=== PATIENT | male | born 1955 | race Caucasian/White ===

== ENCOUNTER 2018-10-13 07:04 | Day surgery (SDC) | payer BC ==
[~2018-10-13] VITALS: Ht 188 cm; Wt 123.4 kg
[~2018-10-13 07:04] MED LIST: AMIT50TA; ATEN50TA9 PO; FLUO60TA6 PO; TYLE500T78 PO
[2018-10-13] MEDS ORDERED: NS 1,000 ML IV ONE (07:30)
[2018-10-13] MEDS ORDERED: PROPOFOL 500 MG/50 ML VIAL As Ordered ONE (08:56)
[2018-10-13] MEDS ORDERED: LIDOCAINE 2% INJ 100 MG/5 ML SDV (FOR ANES.) As Ordered ONE (08:56)
--- NOTE | 2018-10-13 08:59 | ROOR ---
Patient Name: Charles Mckeon Procedure Date: 10/13/2018 8:33 AM Date of : 1955 Age: 62 Room: [facility] Gender: Male Note Status: Finalized Procedure: Colonoscopy Indications: High risk colon cancer surveillance: Personal history of colonic polyps, Last colonoscopy: May 2015 Providers: Sebastian BALDERRAMA MD Referring MD: LANETTE BENITO MD Requesting Provider: Medicines: Monitored Anesthesia Care Complications: No immediate complications. Procedure: Pre-Anesthesia Assessment: - The heart rate, respiratory rate, oxygen saturations, blood pressure, adequacy of pulmonary ventilation, and response to care were monitored throughout the procedure. The Colonoscope was introduced through the anus and advanced to the cecum, identified by appendiceal orifice and ileocecal valve. The colonoscopy was performed without difficulty. The patient tolerated the procedure well. The quality of the bowel preparation was good. Findings: The perianal and digital rectal examinations were normal. Two sessile polyps were found in the sigmoid colon and ascending colon. The polyps were diminutive in size. These polyps were removed with a jumbo cold forceps. Resection and retrieval were complete. A 5 mm polyp was found in the mid sigmoid colon. The polyp was semi-sessile. The polyp was removed with a cold snare. Resection and retrieval were complete. To prevent bleeding after the polypectomy, one hemostatic clip was successfully placed. Small Internal Hemorrhoids. Impression: - Two diminutive polyps in the sigmoid colon and in the ascending colon, removed with a jumbo cold forceps. Resected and retrieved. - One 5 mm polyp in the mid sigmoid colon, removed with a cold snare. Resected and retrieved. Clip was placed. - Small Internal Hemorrhoids. Recommendation: - Repeat colonoscopy in 3 years for surveillance. Sebastian Balderrama MD Sebastian BALDERRAMA MD 10/13/2018 8:59:07 AM This report has been signed electronically. Number of Addenda: 0 Note Initiated On: 10/13/2018 8:33 AM Estimated Blood Loss: Estimated blood loss: none.
[2018-10-13 09:28] VITALS: BP 134/79
== END 2018-10-13 09:30 | disposition home or self-care (01) ==
LOC: M OPP 07:04
PROVIDERS: ATTEND Internal Medicine Gastroenterology
DX: Z12.11 Encounter for screening for malignant neoplasm of colon (principal); Z86.010 Personal history of colon polyps; K64.8 Other hemorrhoids; D12.2 Benign neoplasm of ascending colon; K63.5 Polyp of colon; D12.8 Benign neoplasm of rectum; G47.30 Sleep apnea, unspecified; K21.9 Gastro-esophageal reflux disease without esophagitis; I10 Essential (primary) hypertension; G62.9 Polyneuropathy, unspecified; M47.892 Other spondylosis, cervical region; Z79.899 Other long term (current) drug therapy; Z88.0 Allergy status to penicillin

== ENCOUNTER → 2018-11-18 | Outpatient (REF) | payer BC ==
[2018-11-18 15:51] LABS: BASO % 0.2 % (0.0-1.0); EOS # 0.1 10^3/uL (0.0-0.50); EOS % 1.6 % (0.0-3.0); HEMATOCRIT 44.7 % (42.0-52.0); HEMOGLOBIN 14.8 g/dl (13.5-17.5); LYMPH % 24.7 % (24.0-44.0); MEAN CORPUSCULAR HEMOGLOBIN 28.2 pg (27.0-33.0); MEAN CORPUSCULAR HGB CONC 33.1 g/dl (32.0-36.5); MEAN CORPUSCULAR VOLUME 85.1 fl (80.0-96.0); MONO # 0.8 10^3/uL (0.0-0.8); MONO % 10.2 % (0.0-5.0); NEUTROPHILS # 5.1 10^3/uL (1.8-7.7); NEUTROPHILS % 62.8 % (36.0-66.0); PLATELET COUNT, AUTOMATED 195 10^3/uL (150-450); RED BLOOD COUNT 5.25 10^6/uL (4.30-6.10); WHITE BLOOD COUNT 8.1 10^3/uL (4.0-10.0)
[2018-11-18 16:08] LABS: HEMOGLOBIN A1c 6.6 %
[2018-11-18 16:25] LABS: BLOOD UREA NITROGEN 25 MG/DL (7-18); CARBON DIOXIDE LEVEL 29 MEQ/L (21-32); CHLORIDE LEVEL 104 MEQ/L (98-107); CREATININE FOR GFR 1.18 MG/DL (0.70-1.30); GLOMERULAR FILTRATION RATE > 60.0 (>49); GLUCOSE, FASTING 76 MG/DL (70-100); SODIUM LEVEL 139 MEQ/L (136-145)
[2018-11-18 16:26] LABS: ALBUMIN 3.5 GM/DL (3.2-5.2); ALT/SGPT 38 U/L (12-78); BILIRUBIN,TOTAL 0.4 MG/DL (0.2-1.0); CALCIUM LEVEL 8.4 MG/DL (8.8-10.2); FREE T4 0.96 NG/DL (0.76-1.46); RHEUMATOID FACTOR QUANT < 10.0 IU/ML (<15.0); TOTAL PROTEIN 6.8 GM/DL (6.4-8.2)
[2018-11-18 16:32] LABS: ERYTHROCYTE SEDIMENTATION RATE 8 mm/hr (0-20)
[2018-11-20 13:12] LABS: ALBUMIN 4.09 GM/DL (3.29-5.55); ALBUMIN % 60.1 % (55.8-66.1); ALPHA-1-GLOBULIN % 5.2 % (2.9-4.9); ALPHA-1-GLOBULINS 0.35 GM/DL (0.17-0.41); ALPHA-2-GLOBULINS 0.78 GM/DL (0.42-0.99); ALPHA-2-GLOBULINS % 11.5 % (7.1-11.8); BETA-1-GLOBULINS 0.42 GM/DL (0.28-0.60); BETA-1-GLOBULINS % 6.2 % (4.7-7.2); BETA-2-GLOBULINS 0.35 GM/DL (0.19-0.55); BETA-2-GLOBULINS % 5.1 % (3.2-6.5); GAMMA GLOBULIN % 11.9 % (11.1-18.8); GAMMA GLOBULINS 0.81 GM/DL (0.65-1.58)
[2018-11-22 00:06] LABS: VITAMIN E(ALPHA TOCOPHEROL) 11.7 mg/L (9.0-29.0); VITAMIN E(GAMMA TOCOPHEROL) 1.7 mg/L (0.5-4.9)
[2018-11-23 00:06] LABS: ANTINUCLEAR ANTIBODIES DIRECT Negative (Negative); VITAMIN B1 LEVEL WHOLE BLOOD 124.7 nmol/L (66.5-200.0); VITAMIN B6,PYRIDOXAL PHOSPHATE 6.9 ug/L (5.3-46.7)
== END ==
LOC: M LABNEURO 14:06
PROVIDERS: ATTEND Psychiatry & Neurology Neurology
DX: E11.9 Type 2 diabetes mellitus without complications (principal); E07.9 Disorder of thyroid, unspecified; G62.9 Polyneuropathy, unspecified

== ENCOUNTER → 2021-09-06 | Outpatient (REF) | LOC: M LABSMTC 11:57 | PROVIDERS: ATTEND Pediatrics | DX: Z20.822 Contact with and (suspected) exposure to COVID-19 (principal) ==

== ENCOUNTER → 2022-01-01 | Outpatient (CLI) | payer MEDICARE ==
[~2022-01-01] MED LIST changes: +ACET25TA12 PO; +AMIT50TA PO; +CYAN500T14 PO
== END ==
LOC: M LABSMTC 10:56
PROVIDERS: ATTEND Anesthesiology
DX: Z01.812 Encounter for preprocedural laboratory examination (principal); Z20.822 Contact with and (suspected) exposure to COVID-19

== ENCOUNTER → 2025-07-13 | Outpatient (CLI) | payer MEDICARE ==
[~2025-07-13] MED LIST changes: +AMLO1TAB24 PO; +ATOR80TA59 PO; +LIDOCAINE 1% MDV 20 ML VIAL SC STA; +LOSA50TA28 PO; +PRAS10TA2 PO
[2025-07-13 12:24] VITALS: BP 141/78; TEMP 97.9; O2SAT 91
== END ==
LOC: M IRPRO 12:15
PROVIDERS: ATTEND Otolaryngology
DX: R22.0 Localized swelling, mass and lump, head (principal)